=== PATIENT | female | born 1940 | race Caucasian/White ===

== ENCOUNTER 2020-10-25 13:14 | Inpatient (IN) | payer MEDICARE ==
[~2020-10-25] VITALS: Ht 165.1 cm; Wt 61.2 kg
[~2020-10-25 13:14] MED LIST: ALDACTONE25 MG PO; CRESTOR5 MG PO; TOPROL XL 25 MG25 MG PO; ZESTRIL40 MG PO
[2020-10-25 13:51] LABS: HEMOGLOBIN 14.5 gm/dl (12.3-15.3); RED BLOOD COUNT 4.33 M/UL (4.00-5.10); WHITE BLOOD COUNT 7.5 K/UL (4.5-11.0)
[2020-10-25 14:41] LABS: BUN/CREATININE RATIO 23 (0-10)
[2020-10-25] MEDS ORDERED: ZETIA10 MG PO (16:34)
[2020-10-25] MEDS ORDERED: ASPIRIN EC81 MG PO (16:34)
[2020-10-26 02:46] LABS: RED BLOOD COUNT 3.92 M/UL (4.00-5.10); WHITE BLOOD COUNT 7.6 K/UL (4.5-11.0)
[2020-10-26 03:46] LABS: BUN/CREATININE RATIO 23 (0-10)
[2020-10-27 03:54] LABS: HEMOGLOBIN 13.6 gm/dl (12.3-15.3); RED BLOOD COUNT 4.1 M/UL (4.00-5.10); WHITE BLOOD COUNT 7.9 K/UL (4.5-11.0)
[2020-10-27 04:03] LABS: BUN/CREATININE RATIO 25 (0-10)
[2020-10-27] MEDS ORDERED: ELIQUIS5 MG PO (13:44)
[2020-10-27] MEDS ORDERED: ELIQUIS 5 MG TAB5 MG PO (13:44)
== END 2020-10-27 16:26 | disposition home or self-care (01) | DRG 175 ==
LOC: ER1 13:14 → CDU 16:16 → PROG CARE 16:16
PROVIDERS: Emergency Medicine; Family Medicine; Physician Assistant; ADMIT Internal Medicine Infectious Disease
PROC: B24BZZ4 Ultrasonography of Heart with Aorta, Transesophageal (ICD-10-PCS; principal; 2020-10-26)
DX: I26.99 Other pulmonary embolism without acute cor pulmonale (principal); J96.01 Acute respiratory failure with hypoxia; E87.2 Acidosis; E11.22 Type 2 diabetes mellitus with diabetic chronic kidney disease; I08.3 Combined rheumatic disorders of mitral, aortic and tricuspid valves; I12.9 Hypertensive chronic kidney disease with stage 1 through stage 4 chronic kidney disease, or unspecified chronic kidney disease; N18.9 Chronic kidney disease, unspecified; I27.20 Pulmonary hypertension, unspecified; Z20.822 Contact with and (suspected) exposure to COVID-19; Z96.0 Presence of urogenital implants; Z88.1 Allergy status to other antibiotic agents; Z88.0 Allergy status to penicillin; Z88.2 Allergy status to sulfonamides; Z87.442 Personal history of urinary calculi
CPT/HCPCS: ECHO; 36415; 70450; 71045; 80048; 80053; 81001; 82550; 82553; 82962; 83036; 83605; 83735; 83874; 83880; 84439; 84443; 84484; 85025; 85379; 85610; 85730; 87040; 93005; 93306; 93970; 94760; 96372; 96374; 99285; G0008; J1650; J7040; Q9967; U0002

== ENCOUNTER → 2022-04-11 | Outpatient (CLI) | payer MEDICARE ==
[~2022-04-11] MED LIST changes: +ASPIRIN EC81 MG PO; +ELIQUIS 5 MG TAB5 MG PO; +ELIQUIS5 MG PO; +ZETIA10 MG PO
== END ==
LOC: HEART 5 04-05 08:00
DX: R53.83 Other fatigue (principal); R06.02 Shortness of breath; I08.1 Rheumatic disorders of both mitral and tricuspid valves; I27.20 Pulmonary hypertension, unspecified
CPT/HCPCS: 93306

== ENCOUNTER → 2022-05-01 | Outpatient (CLI) | payer MEDICARE | LOC: CT 09:30 | DX: I26.99 Other pulmonary embolism without acute cor pulmonale (principal) | CPT/HCPCS: 36415; 71275; 82565; 84520; Q9967 ==